=== PATIENT | female | born 1955 | race Caucasian/White ===

== ENCOUNTER → 2017-06-25 | Outpatient (CLI) | payer BC ==
--- NOTE | 2017-06-22 09:22 | MH ---
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 HISTORY OF PRESENT ILLNESS: This 61-year-old white female is coming to [facility] for the purpose of a laser peripheral iridectomy of the right eye. She was found to have narrow anterior chamber angles with potential angle closure and has already undergone a laser peripheral iridectomy in the left eye 5 years ago, but now is ready to have her peripheral iridectomy on the right eye and is coming through [facility] to accomplish this at this time. PAST MEDICAL HISTORY: The patient has a history of hypertension. The patient has a history of an irregular heartbeat. PAST SURGICAL HISTORY: Includes hernia surgery, rotator cuff of the right side and biceps surgery. She has also had the laser peripheral iridectomy on the left eye in 2012. DAILY MEDICATIONS: Include atenolol, baby aspirin, vitamin D, Lexapro and glucosamine. ALLERGIES: SHE HAS NO KNOWN ALLERGIES. SOCIAL HISTORY: Noncontributory. FAMILY HISTORY: Positive for mother and grandfather with cataracts, and a grandmother and 2 aunts with glaucoma. REVIEW OF SYSTEMS: Noncontributory. PHYSICAL EXAMINATION: On ocular exam, the patient's best corrected visual acuity is 20/20, -2 in the right eye and 20/20, -1 in the left. Visual alexander are full to confrontation testing. Extraocular muscle exam reveals full versions with orthophoria at distance and near. Pupils are 3.5 mm, equal, round, reactive to light, without afferent pupillary defect. Anterior segment examination reveals an early pterygium in the right eye. There is a narrow anterior chamber angle with potential angle closure present in the right eye and a laser peripheral iridectomy present in the left eye, with a slightly larger anterior chamber angle, but still relatively narrow. The intraocular pressure is 20 in each eye by applanation tonometry. Dilated fundus exam revealed sharp disc with cup-to-disc ratio 0.25 in the right eye and 0.2 in the left. 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 The background had a small chorioretinal scar superotemporally in the right eye. IMPRESSION: 1. Narrow anterior chamber angle with potential angle closure, right eye. 2. Status post laser peripheral iridectomy, left eye. 3. 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 PLAN: Laser peripheral iridectomy of the right eye through [facility]. MD ZAYNAB King/ALFONSO , 04:48 PM , 06:19 PM
[~2017-06-25] MED LIST: BALANCED SALT SOLN OPHT IRRIG 15 ML BTL ONE; PILOCARPINE HCL 2% OPHT SOLN 15 ML BTL ONE; PROPARACAINE HCL 0.5% OPHT SOLN 15 ML BTL ONE; prednisoLONE ACETATE 1% OPHT SUSP 5 ML BTL ONE
--- NOTE | 2017-06-25 12:21 | MP ---
cc: Gareth Hair MD DATE OF OPERATION: 06/25/2017 POSTOPERATIVE DIAGNOSIS: Narrow anterior chamber angle, right eye. OPERATION: Laser peripheral iridectomy, right eye. ANESTHESIA: Topical. COMPLICATIONS: None. INDICATIONS FOR PROCEDURE: See History and Physical previously dictated. PROCEDURE: The patient arrived at [facility]. Blood pressure was 123/73, pulse 68, respirations 16, temperature ____. A drop of Alphagan P and 2% Pilocarpine were instilled in the right eye. A drop of Ophthaine was instilled in the right eye and a laser iridectomy lens was placed on the anterior surface of the right cornea. Peripheral iridectomy was carried out utilizing the following procedure: Argon laser was first utilized forming a crater in the iris. Twelve exposures of 400 milliwatts were used with a spot size of 200 microns for 0.2 seconds. Then another Argon laser 12 exposures of 950 milliwatts were used with the spot size of 50 microns 0.1 seconds exposure time. Following this, YAG laser was utilized to complete the iridectomy. Four exposures of 5 millijoules were utilized by the YAG laser to complete the iridectomy. An adequate opening was seen at this time. The iridectomy lens was removed and the eye was irrigated. A drop of Alphagan P was instilled. The patient was given a prescription for Pred Forte to be utilized four times a day, and has an appointment for follow-up on the first postoperative day in my office. The patient left the [facility] in satisfactory condition. MD ZAYNAB King/RENÉE , 10:22 AM , 10:50 AM
== END ==
LOC: PHSDC 08:13
PROVIDERS: ATTEND Ophthalmology
DX: H40.031 Anatomical narrow angle, right eye (principal)